=== PATIENT | male | born 1935 | race Caucasian/White ===

== ENCOUNTER → 2018-01-07 09:55 | Outpatient (CLI) | payer MEDICARE, OTHER, SELFPAY ==
[2018-01-07 10:37] LABS: Basophils # 0.1 K/mm3 (0-0.2); Eosinophils # 0.3 K/mm3 (0.0-0.4); Eosinophils % 5.4 % (0.1-12.0); Hematocrit 39.5 % (42.0-52.0); Hemoglobin 12.8 g/dL (14.1-18.0); Lymphocytes # 1.8 K/mm3 (0.7-4.5); Mean Corpuscular HGB Conc 32.3 g/dL (31.8-35.4); Mean Corpuscular Hemoglobin 28.7 pg (27.0-31.2); Mean Corpuscular Volume 88.8 fl (80-94); Mean Platelet Volume 8.2 fl (7.4-10.4); Monocytes # 0.5 K/mm3 (0.1-1.0); Monocytes % 7.4 % (1.7-9.3); Neutrophils # 3.7 K/mm3 (1.8-7.8); Neutrophils % 58.3 % (37.0-80.0); Platelet Count 187 K/mm3 (142-424); Red Blood Count 4.45 M/mm3 (4.60-6.20); Red Cell Distribution Width 14.3 % (11.5-17.5); White Blood Count 6.3 K/mm3 (4.8-10.8)
[2018-01-07 11:18] LABS: Alanine Aminotransferase 19 U/L (12-78); Albumin Level 3.7 gm/dL (3.4-5.0); Albumin/Globulin Ratio 0.9 (1.1-1.8); Alkaline Phosphatase 106 U/L (46-116); Anion Gap 13.2 mEq/L (5-15); Aspartate Amino Transferase 17 U/L (15-37); Bilirubin,Total 0.5 mg/dL (0.2-1.0); Blood Urea Nitrogen 25 mg/dL (7-18); Calcium 9.4 mg/dL (8.5-10.1); Carbon Dioxide 26 mmol/L (21.0-32.0); Chloride 107 mmol/L (98-107); Cholesterol 146 mg/dL (140-200); Creatinine,Serum 1.33 mg/dL (0.70-1.30); Estimated Glomerular Filt Rate 52 ml/min (>60); GFR (African American) 63 ML/MIN (>60); Globulin 4.2 gm/dl (1.3-3.2); Glucose 109 mg/dL (74-106); HDL Cholesterol 29 mg/dL (27-67); LDL Cholesterol 98 mg/dL (0-130); Potassium 4.2 mmoL/L (3.5-5.1); Sodium 142 mmol/L (136-145); Thyroid Stimulating Hormone 1.11 uIU/ml (0.358-3.740); Total Protein,Serum 7.9 gm/dL (6.4-8.2); Triglycerides 95 mg/dL (30-200); VLDL Cholesterol 19 mg/dL (0-40)
[2018-01-07 12:58] LABS: Hemoglobin A1C 8.6 % (0.0-7.0)
[2018-01-08 10:20] LABS: Microalbumin, Urine 67.5 ug/mL (Not Estab.); Vitamin B12 1853 pg/mL (232-1245)
== END ==
PROVIDERS: Visit Provider Nurse Practitioner Family
DX: N18.3 Chronic kidney disease, stage 3 (moderate) (principal); E11.8 Type 2 diabetes mellitus with unspecified complications; E03.9 Hypothyroidism, unspecified; E53.8 Deficiency of other specified B group vitamins
CPT/HCPCS: 36415; 80053; 80061; 82043; 82607; 83036; 84443; 85025

== ENCOUNTER → 2018-06-18 09:30 | Outpatient (CLI) | payer MEDICARE, SELFPAY ==
[2018-06-18 09:59] LABS: Basophils % 0.7 % (0.1-2.0); Eosinophils # 0.1 K/mm3 (0.0-0.4); Eosinophils % 2.6 % (0.1-12.0); Hematocrit 38.2 % (42.0-52.0); Hemoglobin 11.9 g/dL (14.1-18.0); Lymphocytes # 1.4 K/mm3 (0.7-4.5); Lymphocytes % 25.7 K/mm3 (10-50); Mean Corpuscular HGB Conc 31.1 g/dL (31.8-35.4); Mean Platelet Volume 8.4 fl (7.4-10.4); Monocytes # 0.4 K/mm3 (0.1-1.0); Monocytes % 7.1 % (1.7-9.3); Neutrophils # 3.5 K/mm3 (1.8-7.8); Neutrophils % 63.9 % (37.0-80.0); Platelet Count 161 K/mm3 (142-424); Red Blood Count 4.25 M/mm3 (4.60-6.20); Red Cell Distribution Width 14.7 % (11.5-17.5); White Blood Count 5.4 K/mm3 (4.8-10.8)
[2018-06-18 10:59] LABS: Hemoglobin A1C 7.5 % (0.0-7.0)
[2018-06-18 11:22] LABS: Alanine Aminotransferase 19 U/L (12-78); Albumin Level 3.3 gm/dL (3.4-5.0); Albumin/Globulin Ratio 0.8 (1.1-1.8); Alkaline Phosphatase 88 U/L (46-116); Anion Gap 12.9 mEq/L (5-15); Aspartate Amino Transferase 15 U/L (15-37); Bilirubin,Total 0.5 mg/dL (0.2-1.0); Blood Urea Nitrogen 35 mg/dL (7-18); Calcium 8.6 mg/dL (8.5-10.1); Carbon Dioxide 24 mmol/L (21.0-32.0); Chloride 108 mmol/L (98-107); Chol/HDL Ratio 4.8 (1-3.5); Cholesterol 129 mg/dL (140-200); Estimated Glomerular Filt Rate 45 ml/min (>60); GFR (African American) 54 ML/MIN (>60); Globulin 3.9 gm/dl (1.3-3.2); Glucose 102 mg/dL (74-106); HDL Cholesterol 27 mg/dL (27-67); LDL Cholesterol 84 mg/dL (0-130); Potassium 4.9 mmoL/L (3.5-5.1); Sodium 140 mmol/L (136-145); Thyroid Stimulating Hormone 0.55 uIU/ml (0.358-3.740); Total Protein,Serum 7.2 gm/dL (6.4-8.2); Triglycerides 89 mg/dL (30-200); VLDL Cholesterol 18 mg/dL (0-40)
[2018-06-21 06:15] LABS: Vitamin B12 1101 pg/mL (232-1245)
[2018-06-21 15:38] LABS: Ferritin 20 ng/mL (8-388)
[2018-06-23 08:25] LABS: Iron 82 ug/dL (38-169); UIBC 255 ug/dL (111-343)
[2018-06-23 13:10] LABS: Iron Saturation 24 % (15-55)
== END ==
PROVIDERS: PCP Nurse Practitioner Family; Visit Provider Nurse Practitioner Family
DX: E11.22 Type 2 diabetes mellitus with diabetic chronic kidney disease (principal); D64.9 Anemia, unspecified; E78.2 Mixed hyperlipidemia; E03.9 Hypothyroidism, unspecified; E53.8 Deficiency of other specified B group vitamins; D50.8 Other iron deficiency anemias
CPT/HCPCS: 36415; 80053; 80061; 82043; 82570; 82607; 82728; 82746; 83036; 83540; 83550; 84443; 85025

== ENCOUNTER → 2018-09-06 11:56 | Outpatient (CLI) | payer MEDICARE, SELFPAY ==
[2018-09-06 12:24] LABS: Basophils # 0.1 K/mm3 (0-0.2); Basophils % 1.1 % (0.1-2.0); Eosinophils # 0.1 K/mm3 (0.0-0.4); Eosinophils % 1.4 % (0.1-12.0); Hematocrit 39.5 % (42.0-52.0); Hemoglobin 12.1 g/dL (14.1-18.0); Lymphocytes # 1.3 K/mm3 (0.7-4.5); Lymphocytes % 19.7 % (10-50); Mean Corpuscular HGB Conc 30.6 g/dL (31.8-35.4); Mean Corpuscular Hemoglobin 27.4 pg (27.0-31.2); Mean Corpuscular Volume 89.8 fl (80-94); Mean Platelet Volume 8.2 fl (7.4-10.4); Monocytes # 0.4 K/mm3 (0.1-1.0); Monocytes % 6.6 % (1.7-9.3); Neutrophils # 4.8 K/mm3 (1.8-7.8); Neutrophils % 71.2 % (37.0-80.0); Platelet Count 230 K/mm3 (142-424); White Blood Count 6.7 K/mm3 (4.8-10.8)
--- NOTE | 2018-09-06 12:55 | CT_ITS ---
CT angio head, CT angio neck Ordering Physician: Phoenix Dunn MD Patient Age: 82 years: Male HISTORY: ITS.REASON: VISION CHANGES . Double vision. Dizzy. TECHNIQUE: Bolus administration 100 cc [id number] . Thin section: Helical CT/ CTA acquisition scanning performed at neck as well as head.. Axial as well as thickened sagittal and coronal reconstructions performed on independent workstation..-CTA processing All CT scans at this facility used one or more dose reduction techniques , viz: automatic exposure control, ma/Kv adjustment per patient's size, (including targeted exam where dose matched to the indication; i.e. head); or iterative reconstruction technique COMPARISON :. Previous CTA./Neck 09/11/2015 FINDINGS - --- CTA NECK---- Right carotid bifurcation Marked improvement since Sep 2015 CTA. There is been a interval carotid endarterectomy, with now a generous caliber widely patent right carotid bifurcation & right internal carotid artery., Smooth appearance & Free of plaque Left carotid bifurcation.: Dense calcified plaque at the posterior aspect of the left carotid bifurcation is again evident and yields moderate nonflow-limiting stenosis.Up to 40% stenosis. Both common carotid arteries appear satisfactory down to the level of aortic arch. Only minimal calcified plaque at the origin of the Right CCA from innominate artery-yields . Minimal 10% narrowing at the origin of the innominate artery itself from the aorta. Minimal and 10-15% plaque at narrowing origin of the left CCA from aorta. Mild atheromatous plaque throughout the aortic arch. --- CTA HEAD------ . Carotid siphon satisfactory bilaterally..Patent A1 segment bilaterally with the left slightly larger than right... Satisfactory anterior cerebral arteries. The ICA branches appear satisfactory and Branches of the MCA appear satisfactory. No aneurysm at little traverse of Sapp region The basilar artery generous caliber throughout and fills mainly from a very dominant right vertebral artery. Only is extremely small tiny left vertebral artery evident.. This generous caliber Basilar Artery supplies the Posterior Left Cerebral artery. The Right Posterior Cerebral Artery is supplied mainly by a right posterior communicating artery.. On this study there seems seems to be good perfusion of both posterior cerebral arteries. The circulation at the posterior fossa appears adequate through the combination of cerebellar arteries. The left posterior cerebral artery appears slightly more generous caliber than the right but we see no no high-grade stenosis of the vessels leading to occipital lobes but overall satisfactory enhancement pattern here occipital lobes. Grossly symmetric.Otherwise -- The orbits appear symmetric. Globes symmetric on CT survey.. Satisfactory appearance to the ophthalmic artery at its origin from the carotid siphon. Normal CT appearance Optic nerve. No retrobulbar lesions.. Globes unremarkable by CT. .. Although today's thickened Coronal views orbit but not optimal for evaluating this area we see no good evidence for thyroid ophthalmoplegia, . No obvious proptosis. The inferior and medial rectus muscles appear normal volume. On also note the thyroid itself is appears abnormally small at the neck.-(I specifically note these features since thyroid ophthalmoplegia can be a cause double vision.) I would however note there is asymmetry of the sella and pituitary. 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 This I suspect this pituitary adenoma measures up to 10 mm diameter x 11-mm height... This feature has become become more evident today thin sections and previous studies Warrants correlation wit
--- NOTE | 2018-09-06 12:57 | XR_ITS ---
XR wrist LT min 3V Ordering Physician: Phoenix Dunn MD Patient Age: 82 years: Male HISTORY: ITS.REASON: ACUTE LT WRIST PAIN TECHNIQUE: 3 views of the left wrist COMPARISON :None FINDINGS Arthritic changes are seen throughout the wrist.-Most evident towards radial aspect wrist There is narrowing, sclerosis, hypertrophy with subchondral cystic changes most pronounced at first carpal-metacarpal joint,. Reflecting the most of pronounced degenerative arthritic changes at this level. Also notable arthritic changes with narrowing less pronounced hypertrophy and subchondral cystic features seen at the distal navicular articulation with both the trapezium and trapezoid. . The patient also has some narrowing at the capitate-navicular articulation with a generous subchondral cystic feature at proximal capitate measuring nearly 9 mm and just beneath this narrowed portion of the joint. There is some roughening at the posterior aspect of the triquetrum more likely reflecting degenerative changes although could reflect old fracture. Radiocarpal joint with is fairly well maintained with only scant narrowing & question minor sclerosis The fingers are included on this wrist study and demonstrate degenerative changes as well. Narrowing with subchondral cystic changes at the second MCP fifth & first MCP joint of thumb, reflect arthritic changes here. Narrowing and hypertrophic changes at IP joint of thumb. Narrowing at the visualized DIP joint of fingers 2, 3, 4, 5 with trace hypertrophy at these regions. Bones fairly well mineralized. No acute fracture. Pronator fat plane anterior to wrist satisfactory. IMPRESSION Prominent degenerative arthritic changes at wrist and hand. Degenerative arthritis with hypertrophic features most evident at first carpal-metacarpal joint. Significant arthritis is also seen at the articulations of the distal navicular,, as well as other regions as described above.. Degenerative Arthritic changes are also seen at the at the MCP joints involving MCP joint 1, 2, 5 Degenerative arthritic features also involving the PIP joints fingers and IP joint of the thumb
[2018-09-06 13:07] LABS: Erythrocyte Sedimentation Rate 57 mm/hr (0-20)
[2018-09-06 13:09] LABS: Alanine Aminotransferase 16 U/L (12-78); Albumin Level 3.3 gm/dL (3.4-5.0); Albumin/Globulin Ratio 0.8 (1.1-1.8); Alkaline Phosphatase 87 U/L (46-116); Anion Gap 14.3 mEq/L (5-15); Aspartate Amino Transferase 12 U/L (15-37); Bilirubin,Total 0.5 mg/dL (0.2-1.0); Blood Urea Nitrogen 20 mg/dL (7-18); Calcium 8.9 mg/dL (8.5-10.1); Carbon Dioxide 26 mmol/L (21.0-32.0); Chloride 105 mmol/L (98-107); Creatinine,Serum 1.24 mg/dL (0.70-1.30); Estimated Glomerular Filt Rate 56 ml/min (>60); GFR (African American) 68 ML/MIN (>60); Globulin 4.2 gm/dl (1.3-3.2); Glucose 145 mg/dL (74-106); Potassium 4.3 mmoL/L (3.5-5.1); Sodium 141 mmol/L (136-145); Total Protein,Serum 7.5 gm/dL (6.4-8.2)
== END ==
PROVIDERS: Visit Provider Internal Medicine Adolescent Medicine
DX: M25.532 Pain in left wrist (principal); H53.9 Unspecified visual disturbance
CPT/HCPCS: 36415; 70496; 70498; 73110; 80053; 85025; 85651; Q9967

== ENCOUNTER → 2018-09-15 13:15 | Outpatient (CLI) | payer MEDICARE, SELFPAY ==
[2018-09-15 14:18] LABS: Erythrocyte Sedimentation Rate 59 mm/hr (0-20)
[2018-09-15 14:24] LABS: Hemoglobin A1C 7.8 % (0.0-7.0)
[2018-09-15 15:10] LABS: C-Reactive Protein 3.4 mg/L (0.0-0.9); Thyroid Stimulating Hormone 0.97 uIU/ml (0.358-3.740); Uric Acid 6.1 mg/dL (2.6-7.2)
[2018-09-16 11:16] LABS: Prolactin 16.1 ng/mL (4.0-15.2); RA Latex Turbid. <10.0 IU/mL (0.0-13.9)
[2018-09-16 15:21] LABS: Anti-Centromere B Antibodies <0.2 AI (0.0-0.9); Anti-Jo-1 <0.2 AI (0.0-0.9); Anti-Smith Antibody <0.2 AI (0.0-0.9); Antichromatin Antibodies <0.2 AI (0.0-0.9); Antiscleroderma-70 Antibodies <0.2 AI (0.0-0.9); RNP Antibodies 0.3 AI (0.0-0.9); Sjogren's Anti-SS-A <0.2 AI (0.0-0.9); Sjogren's Anti-SS-B <0.2 AI (0.0-0.9)
[2018-09-16 17:41] LABS: Anti-DNA (DS) Ab Qn 6 IU/mL (0-9)
[2018-09-17 06:37] LABS: Anti-Cyclic Citrullinated Pept 7 units (0-19)
== END ==
PROVIDERS: Visit Provider Nurse Practitioner Family
DX: E11.22 Type 2 diabetes mellitus with diabetic chronic kidney disease (principal); E03.9 Hypothyroidism, unspecified; E23.7 Disorder of pituitary gland, unspecified; M25.50 Pain in unspecified joint; R70.0 Elevated erythrocyte sedimentation rate
CPT/HCPCS: 36415; 83036; 84146; 84443; 84550; 85651; 86140; 86200; 86225; 86235; 86431

== ENCOUNTER → 2018-12-15 09:35 | Outpatient (CLI) | payer MEDICARE, SELFPAY ==
[2018-12-15 10:24] LABS: Basophils % 0.3 % (0.1-2.0); Eosinophils # 0.1 K/mm3 (0.0-0.4); Eosinophils % 1.3 % (0.1-12.0); Hematocrit 34.7 % (42.0-52.0); Lymphocytes # 1.9 K/mm3 (0.7-4.5); Lymphocytes % 32.6 % (10-50); Mean Corpuscular HGB Conc 31.7 g/dL (31.8-35.4); Mean Corpuscular Hemoglobin 28.6 pg (27.0-31.2); Mean Platelet Volume 7.2 fl (7.4-10.4); Monocytes # 0.3 K/mm3 (0.1-1.0); Monocytes % 5.9 % (1.7-9.3); Neutrophils # 3.5 K/mm3 (1.8-7.8); Platelet Count 184 K/mm3 (142-424); Red Blood Count 3.85 M/mm3 (4.60-6.20); Red Cell Distribution Width 16.8 % (11.5-17.5); White Blood Count 5.7 K/mm3 (4.8-10.8)
[2018-12-15 11:02] LABS: Hemoglobin A1C 7.9 % (0.0-7.0)
[2018-12-15 11:31] LABS: Ferritin 30 ng/mL (8-388)
[2018-12-15 15:59] LABS: Alanine Aminotransferase 32 U/L (12-78); Albumin Level 3.4 gm/dL (3.4-5.0); Alkaline Phosphatase 58 U/L (46-116); Aspartate Amino Transferase 23 U/L (15-37); Bilirubin,Total 0.5 mg/dL (0.2-1.0); Blood Urea Nitrogen 27 mg/dL (7-18); Calcium 8.7 mg/dL (8.5-10.1); Carbon Dioxide 27 mmol/L (21.0-32.0); Chloride 105 mmol/L (98-107); Chol/HDL Ratio 3.8 (1-3.5); Cholesterol 173 mg/dL (140-200); Creatinine,Serum 1.24 mg/dL (0.70-1.30); Estimated Glomerular Filt Rate 56 ml/min (>60); GFR (African American) 68 ML/MIN (>60); Globulin 3.3 gm/dl (1.3-3.2); Glucose 59 mg/dL (74-106); HDL Cholesterol 45 mg/dL (27-67); LDL Cholesterol 112 mg/dL (0-130); Sodium 141 mmol/L (136-145); Thyroid Stimulating Hormone 2.89 uIU/ml (0.358-3.740); Total Protein,Serum 6.7 gm/dL (6.4-8.2); Triglycerides 79 mg/dL (30-200); VLDL Cholesterol 16 mg/dL (0-40)
[2018-12-16 08:30] LABS: Iron 40 ug/dL (38-169); UIBC 313 ug/dL (111-343)
[2018-12-16 10:02] LABS: Iron Saturation 11 % (15-55)
[2018-12-16 10:02] LABS: Vitamin B12 970 pg/mL (232-1245)
== END ==
PROVIDERS: PCP Nurse Practitioner Family; Visit Provider Nurse Practitioner Family
DX: D50.8 Other iron deficiency anemias (principal); Z79.899 Other long term (current) drug therapy
CPT/HCPCS: 36415; 80053; 80061; 82607; 82728; 82746; 83036; 83540; 83550; 84443; 85025

== ENCOUNTER → 2019-03-18 09:56 | Outpatient (CLI) | payer MEDICARE, SELFPAY ==
[2019-03-18 10:15] LABS: Basophils % 0.5 % (0.1-2.0); Eosinophils # 0.1 K/mm3 (0.0-0.4); Eosinophils % 0.8 % (0.1-12.0); Hemoglobin 11.1 g/dL (14.1-18.0); Lymphocytes # 2.1 K/mm3 (0.7-4.5); Lymphocytes % 30.2 % (10-50); Mean Corpuscular HGB Conc 30.1 g/dL (31.8-35.4); Mean Corpuscular Hemoglobin 26.6 pg (27.0-31.2); Mean Corpuscular Volume 88.4 fl (80-94); Mean Platelet Volume 8.2 fl (7.4-10.4); Monocytes # 0.4 K/mm3 (0.1-1.0); Monocytes % 6.5 % (1.7-9.3); Neutrophils # 4.2 K/mm3 (1.8-7.8); Platelet Count 193 K/mm3 (142-424); Red Blood Count 4.19 M/mm3 (4.60-6.20); Red Cell Distribution Width 15.3 % (11.5-17.5); White Blood Count 6.8 K/mm3 (4.8-10.8)
[2019-03-18 10:51] LABS: Erythrocyte Sedimentation Rate 18 mm/hr (0-20)
[2019-03-18 12:14] LABS: Alanine Aminotransferase 21 U/L (12-78); Albumin Level 3.3 gm/dL (3.4-5.0); Alkaline Phosphatase 70 U/L (46-116); Anion Gap 10.3 mEq/L (5-15); Aspartate Amino Transferase 11 U/L (15-37); Bilirubin,Total 0.6 mg/dL (0.2-1.0); Blood Urea Nitrogen 31 mg/dL (7-18); Calcium 9.4 mg/dL (8.5-10.1); Carbon Dioxide 28 mmol/L (21.0-32.0); Chloride 107 mmol/L (98-107); Chol/HDL Ratio 5.2 (1-3.5); Cholesterol 167 mg/dL (140-200); Creatinine,Serum 1.42 mg/dL (0.70-1.30); Estimated Glomerular Filt Rate 48 ml/min (>60); GFR (African American) 58 ML/MIN (>60); Globulin 3.4 gm/dl (1.3-3.2); Glucose 64 mg/dL (74-106); HDL Cholesterol 32 mg/dL (27-67); LDL Cholesterol 118 mg/dL (0-130); Potassium 4.3 mmoL/L (3.5-5.1); Sodium 141 mmol/L (136-145); Thyroid Stimulating Hormone 1.59 uIU/ml (0.358-3.740); Total Protein,Serum 6.7 gm/dL (6.4-8.2); Triglycerides 87 mg/dL (30-200); VLDL Cholesterol 17 mg/dL (0-40)
[2019-03-20 22:51] LABS: Prolactin 19.9 ng/mL (4.0-15.2); Vitamin B12 935 pg/mL (232-1245); Vitamin D 25 Hydroxy 39.8 ng/mL (30.0-100.0)
== END ==
PROVIDERS: Visit Provider Nurse Practitioner Family
DX: D64.9 Anemia, unspecified (principal); E11.22 Type 2 diabetes mellitus with diabetic chronic kidney disease; E78.2 Mixed hyperlipidemia; E53.8 Deficiency of other specified B group vitamins; E03.9 Hypothyroidism, unspecified; M19.90 Unspecified osteoarthritis, unspecified site
CPT/HCPCS: 36415; 80053; 80061; 82607; 82652; 83036; 84146; 84443; 85025; 85651

== ENCOUNTER → 2019-04-19 10:36 | Outpatient (CLI) | payer MEDICARE, SELFPAY ==
[2019-04-19 10:52] LABS: Basophils # 0.1 K/mm3 (0-0.2); Basophils % 0.7 % (0.1-2.0); Eosinophils # 0.1 K/mm3 (0.0-0.4); Eosinophils % 0.8 % (0.1-12.0); Hematocrit 41.5 % (42.0-52.0); Hemoglobin 12.9 g/dL (14.1-18.0); Lymphocytes # 1.8 K/mm3 (0.7-4.5); Lymphocytes % 23.7 % (10-50); Mean Corpuscular Hemoglobin 28.2 pg (27.0-31.2); Mean Corpuscular Volume 90.8 fl (80-94); Mean Platelet Volume 7.3 fl (7.4-10.4); Monocytes # 0.4 K/mm3 (0.1-1.0); Monocytes % 5.4 % (1.7-9.3); Neutrophils # 5.2 K/mm3 (1.8-7.8); Neutrophils % 69.4 % (37.0-80.0); Platelet Count 201 K/mm3 (142-424); Red Blood Count 4.57 M/mm3 (4.60-6.20); Red Cell Distribution Width 15.8 % (11.5-17.5); White Blood Count 7.5 K/mm3 (4.8-10.8)
[2019-04-19 14:08] LABS: Alanine Aminotransferase 25 U/L (12-78); Albumin Level 3.5 gm/dL (3.4-5.0); Albumin/Globulin Ratio 1.1 (1.1-1.8); Alkaline Phosphatase 77 U/L (46-116); Anion Gap 10.9 mEq/L (5-15); Aspartate Amino Transferase 7 U/L (15-37); Bilirubin,Total 0.5 mg/dL (0.2-1.0); Blood Urea Nitrogen 25 mg/dL (7-18); C-Reactive Protein 0.2 mg/dL (0.0-0.9); Calcium 9.4 mg/dL (8.5-10.1); Carbon Dioxide 28 mmol/L (21.0-32.0); Chloride 105 mmol/L (98-107); Creatinine,Serum 1.29 mg/dL (0.70-1.30); Estimated Glomerular Filt Rate 53 ml/min (>60); GFR (African American) 65 ML/MIN (>60); Globulin 3.3 gm/dl (1.3-3.2); Glucose 116 mg/dL (74-106); Potassium 4.9 mmoL/L (3.5-5.1); Sodium 139 mmol/L (136-145); Total Protein,Serum 6.8 gm/dL (6.4-8.2)
[2019-04-19 14:59] LABS: Erythrocyte Sedimentation Rate 11 mm/hr (0-20)
== END ==
PROVIDERS: Visit Provider Internal Medicine
DX: M35.3 Polymyalgia rheumatica (principal); Z79.52 Long term (current) use of systemic steroids
CPT/HCPCS: 36415; 80053; 85025; 85651; 86140

== ENCOUNTER → 2019-06-17 09:43 | Outpatient (CLI) | payer MEDICARE, SELFPAY ==
[2019-06-17 10:14] LABS: Basophils # 0.1 K/mm3 (0-0.2); Basophils % 0.8 % (0.1-2.0); Eosinophils # 0.1 K/mm3 (0.0-0.4); Eosinophils % 0.9 % (0.1-12.0); Hematocrit 45.4 % (42.0-52.0); Hemoglobin 13.7 g/dL (14.1-18.0); Lymphocytes # 3.2 K/mm3 (0.7-4.5); Lymphocytes % 35.7 % (10-50); Mean Corpuscular HGB Conc 30.1 g/dL (31.8-35.4); Mean Corpuscular Hemoglobin 28.2 pg (27.0-31.2); Mean Corpuscular Volume 93.5 fl (80-94); Mean Platelet Volume 7.5 fl (7.4-10.4); Monocytes # 0.7 K/mm3 (0.1-1.0); Monocytes % 8.2 % (1.7-9.3); Neutrophils # 4.9 K/mm3 (1.8-7.8); Neutrophils % 54.4 % (37.0-80.0); Platelet Count 251 K/mm3 (142-424); Red Blood Count 4.85 M/mm3 (4.60-6.20); Red Cell Distribution Width 16.2 % (11.5-17.5); White Blood Count 9.1 K/mm3 (4.8-10.8)
[2019-06-17 11:07] LABS: Alanine Aminotransferase 20 U/L (12-78); Albumin Level 3.6 gm/dL (3.4-5.0); Albumin/Globulin Ratio 1.1 (1.1-1.8); Alkaline Phosphatase 75 U/L (46-116); Anion Gap 11.9 mEq/L (5-15); Aspartate Amino Transferase 12 U/L (15-37); Bilirubin,Total 0.5 mg/dL (0.2-1.0); Blood Urea Nitrogen 29 mg/dL (7-18); Carbon Dioxide 29 mmol/L (21.0-32.0); Chloride 105 mmol/L (98-107); Chol/HDL Ratio 4.5 (1-3.5); Cholesterol 166 mg/dL (140-200); Creatinine,Serum 1.24 mg/dL (0.70-1.30); Estimated Glomerular Filt Rate 56 ml/min (>60); GFR (African American) 68 ML/MIN (>60); Globulin 3.4 gm/dl (1.3-3.2); Glucose 70 mg/dL (74-106); HDL Cholesterol 37 mg/dL (27-67); LDL Cholesterol 114 mg/dL (0-130); Potassium 3.9 mmoL/L (3.5-5.1); Sodium 142 mmol/L (136-145); Thyroid Stimulating Hormone 1.68 uIU/ml (0.358-3.740); Triglycerides 77 mg/dL (30-200); VLDL Cholesterol 15 mg/dL (0-40)
[2019-06-17 11:32] LABS: Hemoglobin A1C 8.2 % (0.0-7.0)
[2019-06-18 18:58] LABS: Vitamin B12 1340 pg/mL (232-1245)
== END ==
PROVIDERS: Visit Provider Nurse Practitioner Family
DX: E11.22 Type 2 diabetes mellitus with diabetic chronic kidney disease (principal); E78.2 Mixed hyperlipidemia; E03.9 Hypothyroidism, unspecified; E53.8 Deficiency of other specified B group vitamins; D64.9 Anemia, unspecified; N18.3 Chronic kidney disease, stage 3 (moderate)
CPT/HCPCS: 36415; 80053; 80061; 82607; 83036; 84443; 85025

== ENCOUNTER → 2019-07-20 10:51 | Outpatient (CLI) | payer MEDICARE, SELFPAY ==
[2019-07-20 12:02] LABS: Basophils % 0.6 % (0.1-2.0); Eosinophils % 0.5 % (0.1-12.0); Hematocrit 44.9 % (42.0-52.0); Hemoglobin 14.1 g/dL (14.1-18.0); Lymphocytes # 1.3 K/mm3 (0.7-4.5); Mean Corpuscular HGB Conc 31.4 g/dL (31.8-35.4); Mean Corpuscular Hemoglobin 30.1 pg (27.0-31.2); Mean Corpuscular Volume 95.8 fl (80-94); Mean Platelet Volume 7.7 fl (7.4-10.4); Monocytes # 0.4 K/mm3 (0.1-1.0); Monocytes % 6.1 % (1.7-9.3); Neutrophils # 5.4 K/mm3 (1.8-7.8); Neutrophils % 74.8 % (37.0-80.0); Platelet Count 192 K/mm3 (142-424); Red Blood Count 4.69 M/mm3 (4.60-6.20); Red Cell Distribution Width 15.4 % (11.5-17.5); White Blood Count 7.3 K/mm3 (4.8-10.8)
[2019-07-20 13:49] LABS: Alanine Aminotransferase 23 U/L (12-78); Albumin Level 3.5 gm/dL (3.4-5.0); Alkaline Phosphatase 75 U/L (46-116); Aspartate Amino Transferase 11 U/L (15-37); Bilirubin,Total 0.7 mg/dL (0.2-1.0); Blood Urea Nitrogen 27 mg/dL (7-18); Carbon Dioxide 28 mmol/L (21.0-32.0); Chloride 104 mmol/L (98-107); Creatine Kinase 67 U/L (39-308); Creatinine,Serum 1.27 mg/dL (0.70-1.30); Estimated Glomerular Filt Rate 54 ml/min (>60); GFR (African American) 66 ML/MIN (>60); Globulin 3.4 gm/dl (1.3-3.2); Glucose 109 mg/dL (74-106); Sodium 141 mmol/L (136-145); Total Protein,Serum 6.9 gm/dL (6.4-8.2)
[2019-07-20 13:56] LABS: C-Reactive Protein < 0.2 mg/dL (0.0-0.9)
[2019-07-20 14:26] LABS: Erythrocyte Sedimentation Rate 10 mm/hr (0-20)
== END ==
PROVIDERS: Visit Provider Internal Medicine
DX: M35.3 Polymyalgia rheumatica (principal); M15.9 Polyosteoarthritis, unspecified; Z79.52 Long term (current) use of systemic steroids
CPT/HCPCS: 36415; 80053; 82550; 85025; 85651; 86140

== ENCOUNTER → 2019-09-21 10:41 | Outpatient (CLI) | payer MEDICARE, SELFPAY ==
[2019-09-21 11:04] LABS: Basophils # 0.1 K/mm3 (0-0.2); Basophils % 0.8 % (0.1-2.0); Eosinophils # 0.1 K/mm3 (0.0-0.4); Eosinophils % 1.6 % (0.1-12.0); Hematocrit 45.1 % (42.0-52.0); Hemoglobin 14.4 g/dL (14.1-18.0); Lymphocytes # 2.3 K/mm3 (0.7-4.5); Lymphocytes % 27.5 % (10-50); Mean Corpuscular HGB Conc 31.8 g/dL (31.8-35.4); Mean Corpuscular Volume 94.2 fl (80-94); Mean Platelet Volume 7.9 fl (7.4-10.4); Monocytes # 0.7 K/mm3 (0.1-1.0); Monocytes % 8.1 % (1.7-9.3); Neutrophils # 5.1 K/mm3 (1.8-7.8); Platelet Count 226 K/mm3 (142-424); Red Blood Count 4.78 M/mm3 (4.60-6.20); Red Cell Distribution Width 13.7 % (11.5-17.5); White Blood Count 8.1 K/mm3 (4.8-10.8)
[2019-09-21 11:26] LABS: C-Reactive Protein < 0.2 mg/dL (0.0-0.9)
[2019-09-21 11:37] LABS: Alanine Aminotransferase 15 U/L (12-78); Albumin Level 3.5 gm/dL (3.4-5.0); Albumin/Globulin Ratio 0.9 (1.1-1.8); Alkaline Phosphatase 76 U/L (46-116); Anion Gap 12.4 mEq/L (5-15); Bilirubin,Total 0.6 mg/dL (0.2-1.0); Blood Urea Nitrogen 24 mg/dL (7-18); Calcium 9.3 mg/dL (8.5-10.1); Carbon Dioxide 27 mmol/L (21.0-32.0); Chloride 104 mmol/L (98-107); Creatinine,Serum 1.27 mg/dL (0.70-1.30); Estimated Glomerular Filt Rate 54 ml/min (>60); GFR (African American) 66 ML/MIN (>60); Globulin 3.7 gm/dl (1.3-3.2); Glucose 72 mg/dL (74-106); Potassium 3.4 mmoL/L (3.5-5.1); Sodium 140 mmol/L (136-145); Thyroid Stimulating Hormone 2.52 uIU/ml (0.358-3.740); Total Protein,Serum 7.2 gm/dL (6.4-8.2)
[2019-09-21 11:59] LABS: Aspartate Amino Transferase 19 U/L (15-37)
[2019-09-21 12:08] LABS: Hemoglobin A1C 8.3 % (0.0-7.0)
[2019-09-21 12:12] LABS: Erythrocyte Sedimentation Rate 12 mm/hr (0-20)
[2019-09-22 15:41] LABS: Vitamin B12 1046 pg/mL (232-1245)
== END ==
PROVIDERS: Visit Provider Nurse Practitioner Family
DX: E11.22 Type 2 diabetes mellitus with diabetic chronic kidney disease (principal); E03.9 Hypothyroidism, unspecified; E53.8 Deficiency of other specified B group vitamins; N18.3 Chronic kidney disease, stage 3 (moderate); M15.9 Polyosteoarthritis, unspecified; M35.3 Polymyalgia rheumatica; Z79.52 Long term (current) use of systemic steroids
CPT/HCPCS: 36415; 80053; 82607; 83036; 84443; 85025; 85651; 86140

== ENCOUNTER → 2019-11-21 10:21 | Outpatient (CLI) | payer MEDICARE, SELFPAY ==
[2019-11-21 11:35] LABS: Basophils # 0.1 K/mm3 (0-0.2); Basophils % 0.8 % (0.1-2.0); Eosinophils # 0.2 K/mm3 (0.0-0.4); Eosinophils % 1.9 % (0.1-12.0); Hematocrit 46.2 % (42.0-52.0); Hemoglobin 14.8 g/dL (14.1-18.0); Lymphocytes # 1.7 K/mm3 (0.7-4.5); Lymphocytes % 21.6 % (10-50); Mean Corpuscular Hemoglobin 30.1 pg (27.0-31.2); Mean Platelet Volume 8.4 fl (7.4-10.4); Monocytes # 0.5 K/mm3 (0.1-1.0); Monocytes % 6.6 % (1.7-9.3); Neutrophils # 5.4 K/mm3 (1.8-7.8); Neutrophils % 69.2 % (37.0-80.0); Platelet Count 178 K/mm3 (142-424); Red Blood Count 4.92 M/mm3 (4.60-6.20); Red Cell Distribution Width 13.9 % (11.5-17.5); White Blood Count 7.9 K/mm3 (4.8-10.8)
[2019-11-21 11:48] LABS: Chloride 105 mmol/L (98-107)
[2019-11-21 11:49] LABS: Sodium 143 mmol/L (136-145)
[2019-11-21 11:51] LABS: Alanine Aminotransferase 14 U/L (12-78); Aspartate Amino Transferase 22 U/L (17-59); Blood Urea Nitrogen 23 mg/dl (9-20); Estimated Glomerular Filt Rate 58 ml/min (>60); GFR (African American) 70 ML/MIN (>60)
[2019-11-21 11:52] LABS: Albumin Level 4.1 g/dl (3.5-5.0); Albumin/Globulin Ratio 1.4 (1.1-1.8); Alkaline Phosphatase 70 U/L (38-126); Bilirubin,Total 0.6 mg/dl (0.2-1.3); Calcium 9.7 mg/dl (8.4-10.2); Carbon Dioxide 28 mmol/L (22.0-30.0); Globulin 2.9 g/dL (1.3-3.2); Glucose 90 mg/dl (74-100)
[2019-11-21 13:03] LABS: Erythrocyte Sedimentation Rate 13 mm/hr (0-20)
[2019-11-21 16:02] LABS: C-Reactive Protein 1.2 mg/L (0-4)
== END ==
PROVIDERS: Visit Provider Internal Medicine
DX: M15.9 Polyosteoarthritis, unspecified (principal); M35.3 Polymyalgia rheumatica; Z79.52 Long term (current) use of systemic steroids
CPT/HCPCS: 36415; 80053; 85025; 85651; 86140

== ENCOUNTER → 2020-01-24 12:28 | Outpatient (CLI) | payer MEDICARE, SELFPAY ==
[2020-01-24 13:01] LABS: Basophils # 0.1 K/mm3 (0-0.2); Basophils % 1.1 % (0.1-2.0); Eosinophils # 0.1 K/mm3 (0.0-0.4); Eosinophils % 1.8 % (0.1-12.0); Hematocrit 43.2 % (42.0-52.0); Lymphocytes # 1.9 K/mm3 (0.7-4.5); Lymphocytes % 26.6 % (10-50); Mean Corpuscular HGB Conc 32.5 g/dL (31.8-35.4); Mean Corpuscular Hemoglobin 30.8 pg (27.0-31.2); Mean Corpuscular Volume 94.8 fl (80-94); Monocytes # 0.6 K/mm3 (0.1-1.0); Monocytes % 7.8 % (1.7-9.3); Neutrophils # 4.4 K/mm3 (1.8-7.8); Neutrophils % 62.6 % (37.0-80.0); Platelet Count 259 K/mm3 (142-424); Red Blood Count 4.55 M/mm3 (4.60-6.20); Red Cell Distribution Width 13.7 % (11.5-17.5)
[2020-01-24 13:32] LABS: Hemoglobin A1C 6.9 % (4.0-6.0)
[2020-01-24 14:09] LABS: Alanine Aminotransferase 13 U/L (12-78); Albumin Level 4.4 g/dl (3.5-5.0); Albumin/Globulin Ratio 1.3 (1.1-1.8); Alkaline Phosphatase 92 U/L (38-126); Anion Gap 11.2 mEq/L (5-15); Aspartate Amino Transferase 21 U/L (17-59); Bilirubin,Total 0.6 mg/dl (0.2-1.3); Blood Urea Nitrogen 25 mg/dl (9-20); Calcium 10.3 mg/dl (8.4-10.2); Carbon Dioxide 29 mmol/L (22.0-30.0); Chloride 103 mmol/L (98-107); Cholesterol 149 mg/dl (140-200); Estimated Glomerular Filt Rate 58 ml/min (>60); GFR (African American) 70 ML/MIN (>60); Globulin 3.3 g/dL (1.3-3.2); Glucose 91 mg/dl (74-100); HDL Cholesterol 30 mg/dl (40-60); Potassium 4.2 mmoL/L (3.5-5.1); Sodium 139 mmol/L (136-145); Total Protein,Serum 7.7 g/dl (6.3-8.2); Triglycerides 125 mg/dl (30-150); VLDL Cholesterol 25 mg/dL (0-40)
[2020-01-24 14:20] LABS: Direct LDL Cholesterol 107.81 mg/dL (100-129)
[2020-01-24 14:38] LABS: Thyroid Stimulating Hormone 1.72 uIU/mL (0.465-4.68)
[2020-01-25 09:26] LABS: Creatinine, Urine 175.2 mg/dL (Not Estab.); Microalbumin, Urine 129.8 ug/mL (Not Estab.)
[2020-01-26 16:26] LABS: Prostate Specific Ag Screen 9.6 ng/ml (0.0-4.0)
== END ==
PROVIDERS: Visit Provider Nurse Practitioner Family
DX: E11.22 Type 2 diabetes mellitus with diabetic chronic kidney disease (principal); N18.3 Chronic kidney disease, stage 3 (moderate); E78.2 Mixed hyperlipidemia; E03.9 Hypothyroidism, unspecified; R35.1 Nocturia; Z12.5 Encounter for screening for malignant neoplasm of prostate
CPT/HCPCS: 36415; 80053; 80061; 82043; 82570; 83036; 84443; 85025; G0103

== ENCOUNTER → 2020-04-04 09:45 | Outpatient (CLI) | payer MEDICARE, SELFPAY ==
[2020-04-04 10:28] LABS: Basophils # 0.1 K/mm3 (0-0.2); Basophils % 0.8 % (0.1-2.0); Eosinophils # 0.2 K/mm3 (0.0-0.4); Eosinophils % 1.7 % (0.1-12.0); Hematocrit 45.6 % (42.0-52.0); Hemoglobin 14.9 g/dL (14.1-18.0); Lymphocytes # 1.7 K/mm3 (0.7-4.5); Lymphocytes % 19.4 % (10-50); Mean Corpuscular HGB Conc 32.6 g/dL (31.8-35.4); Mean Corpuscular Hemoglobin 31.9 pg (27.0-31.2); Mean Corpuscular Volume 97.7 fl (80-94); Mean Platelet Volume 7.7 fl (7.4-10.4); Monocytes # 0.4 K/mm3 (0.1-1.0); Monocytes % 4.8 % (1.7-9.3); Neutrophils # 6.3 K/mm3 (1.8-7.8); Neutrophils % 73.3 % (37.0-80.0); Platelet Count 163 K/mm3 (142-424); Red Blood Count 4.67 M/mm3 (4.60-6.20); White Blood Count 8.5 K/mm3 (4.8-10.8)
[2020-04-04 10:45] LABS: Chloride 104 mmol/L (98-107)
[2020-04-04 10:46] LABS: Potassium 4.9 mmoL/L (3.5-5.1); Sodium 142 mmol/L (136-145)
[2020-04-04 10:47] LABS: Creatine Kinase 26 U/L (55-170)
[2020-04-04 10:48] LABS: Alanine Aminotransferase 16 U/L (12-78); Alkaline Phosphatase 79 U/L (38-126); Anion Gap 13.9 mEq/L (5-15); Aspartate Amino Transferase 21 U/L (17-59); Bilirubin,Total 0.9 mg/dl (0.2-1.3); Blood Urea Nitrogen 32 mg/dl (9-20); Carbon Dioxide 29 mmol/L (22.0-30.0); Estimated Glomerular Filt Rate 49 ml/min (>60); GFR (African American) 59 ML/MIN (>60)
[2020-04-04 10:49] LABS: Albumin/Globulin Ratio 1.3 (1.1-1.8); Calcium 9.7 mg/dl (8.4-10.2); Cholesterol 167 mg/dl (140-200); Glucose 80 mg/dl (74-100); Triglycerides 173 mg/dl (30-150); VLDL Cholesterol 35 mg/dL (0-40)
[2020-04-04 10:54] LABS: C-Reactive Protein 1.7 mg/L (0-4)
[2020-04-04 11:00] LABS: Direct LDL Cholesterol 104.52 mg/dL (100-129)
[2020-04-04 11:19] LABS: Thyroid Stimulating Hormone 2.46 uIU/mL (0.465-4.68)
[2020-04-04 12:10] LABS: Chol/HDL Ratio 5.2 (1-3.5); HDL Cholesterol 32 mg/dl (40-60)
[2020-04-04 12:26] LABS: Erythrocyte Sedimentation Rate 10 mm/hr (0-20)
[2020-04-04 13:58] LABS: Hemoglobin A1C 7.8 % (4.0-6.0)
[2020-04-05 10:12] LABS: Vitamin B12 1228 pg/mL (232-1245)
== END ==
PROVIDERS: PCP Internal Medicine; Visit Provider Nurse Practitioner Family
DX: E11.22 Type 2 diabetes mellitus with diabetic chronic kidney disease (principal); E78.2 Mixed hyperlipidemia; E03.9 Hypothyroidism, unspecified; E53.8 Deficiency of other specified B group vitamins; M35.3 Polymyalgia rheumatica; M15.9 Polyosteoarthritis, unspecified; Z79.52 Long term (current) use of systemic steroids
CPT/HCPCS: 36415; 80053; 80061; 82550; 82607; 83036; 84443; 85025; 85651; 86140

== ENCOUNTER → 2020-08-06 11:17 | Outpatient (CLI) | payer MEDICARE, SELFPAY ==
[2020-08-06 11:48] LABS: Basophils # 0.1 K/mm3 (0-0.2); Eosinophils # 0.1 K/mm3 (0.0-0.4); Eosinophils % 0.5 % (0.1-12.0); Hematocrit 46.9 % (42.0-52.0); Hemoglobin 15.5 g/dL (14.1-18.0); Lymphocytes # 1.3 K/mm3 (0.7-4.5); Lymphocytes % 15.7 % (10-50); Mean Corpuscular Hemoglobin 31.9 pg (27.0-31.2); Mean Corpuscular Volume 96.7 fl (80-94); Mean Platelet Volume 8.1 fl (7.4-10.4); Monocytes # 0.4 K/mm3 (0.1-1.0); Monocytes % 5.1 % (1.7-9.3); Neutrophils # 6.6 K/mm3 (1.8-7.8); Neutrophils % 77.6 % (37.0-80.0); Platelet Count 201 K/mm3 (142-424); Red Blood Count 4.85 M/mm3 (4.60-6.20); White Blood Count 8.5 K/mm3 (4.8-10.8)
[2020-08-06 12:26] LABS: Chloride 103 mmol/L (98-107); Sodium 139 mmol/L (136-145)
[2020-08-06 12:27] LABS: Potassium 4.6 mmoL/L (3.5-5.1)
[2020-08-06 12:29] LABS: Alanine Aminotransferase 17 U/L (12-78); Albumin Level 4.3 g/dl (3.5-5.0); Albumin/Globulin Ratio 1.4 (1.1-1.8); Alkaline Phosphatase 92 U/L (38-126); Anion Gap 11.6 mEq/L (5-15); Aspartate Amino Transferase 24 U/L (17-59); Bilirubin,Total 0.8 mg/dl (0.2-1.3); Blood Urea Nitrogen 28 mg/dl (9-20); Calcium 9.8 mg/dl (8.4-10.2); Carbon Dioxide 29 mmol/L (22.0-30.0); Creatine Kinase 25 U/L (55-170); Estimated Glomerular Filt Rate 58 ml/min (>60); GFR (African American) 70 ML/MIN (>60); Glucose 149 mg/dl (74-100); Total Protein,Serum 7.3 g/dl (6.3-8.2)
[2020-08-06 14:24] LABS: Erythrocyte Sedimentation Rate 8 mm/hr (0-20)
[2020-08-07 12:34] LABS: PSA, Free 2.85 ng/mL; Prostate Specific Ag 13.4 ng/mL (0.0-4.0)
== END ==
PROVIDERS: PCP Nurse Practitioner Women's Health; Visit Provider Urology
DX: R97.20 Elevated prostate specific antigen [PSA] (principal); M35.3 Polymyalgia rheumatica; Z79.52 Long term (current) use of systemic steroids
CPT/HCPCS: 36415; 80053; 82550; 84153; 84154; 85025; 85651; 86140

== ENCOUNTER → 2020-08-25 09:01 | Outpatient (CLI) | payer MEDICARE, SELFPAY ==
[2020-08-25 09:24] LABS: Basophils # 0.1 K/mm3 (0-0.2); Basophils % 0.8 % (0.1-2.0); Eosinophils # 0.1 K/mm3 (0.0-0.4); Eosinophils % 1.6 % (0.1-12.0); Hematocrit 46.8 % (42.0-52.0); Hemoglobin 14.3 g/dL (14.1-18.0); Lymphocytes % 23.6 % (10-50); Mean Corpuscular HGB Conc 30.7 g/dL (31.8-35.4); Mean Corpuscular Hemoglobin 30.4 pg (27.0-31.2); Mean Corpuscular Volume 99.1 fl (80-94); Mean Platelet Volume 7.6 fl (7.4-10.4); Monocytes # 0.6 K/mm3 (0.1-1.0); Monocytes % 6.5 % (1.7-9.3); Neutrophils # 5.7 K/mm3 (1.8-7.8); Neutrophils % 67.5 % (37.0-80.0); Platelet Count 188 K/mm3 (142-424); Red Blood Count 4.72 M/mm3 (4.60-6.20); Red Cell Distribution Width 13.4 % (11.5-17.5); White Blood Count 8.4 K/mm3 (4.8-10.8)
[2020-08-25 10:30] LABS: Anion Gap 12.2 mEq/L (5-15); Blood Urea Nitrogen 27 mg/dl (9-20); Carbon Dioxide 30 mmol/L (22.0-30.0); Chloride 103 mmol/L (98-107); Estimated Glomerular Filt Rate 53 ml/min (>60); GFR (African American) 64 ML/MIN (>60); Glucose 62 mg/dl (74-100); Potassium 4.2 mmoL/L (3.5-5.1); Sodium 141 mmol/L (136-145)
[2020-08-25 11:24] LABS: Coronavirus 19 IgG Antibody Negative (Negative); Coronavirus 19 IgM Antibody Negative (Negative)
[2020-08-26 13:43] LABS: PSA, Free 2.93 ng/mL; Prostate Specific Ag 14.2 ng/mL (0.0-4.0)
== END ==
PROVIDERS: Visit Provider Urology
DX: R97.20 Elevated prostate specific antigen [PSA] (principal); N40.1 Benign prostatic hyperplasia with lower urinary tract symptoms; N13.8 Other obstructive and reflux uropathy; Z01.818 Encounter for other preprocedural examination; Z03.818 Encounter for observation for suspected exposure to other biological agents ruled out
CPT/HCPCS: 36415; 80048; 84153; 84154; 85025; 86328

== ENCOUNTER 2020-08-27 07:39 | Day surgery (SDC) | payer MEDICARE, SELFPAY ==
[2020-08-22 10:42] VITALS: BMI 30.7
[2020-08-27 08:01] VITALS: BP 188/96; PULSE 68; RESP 18; TEMP 36.5; O2SAT 95
[2020-08-27 08:50] LABS: POC Glucose,Bedside 164 (70-110)
--- NOTE | 2020-08-27 10:11 | HMH.ANESCL ---
[facility] Anesthesia Checklist - Patient Identification Patient Identification: Arm Band, Verbal (Name & ) - Structural Data Admitted From: Home Planned Operative Procedure/s: Prostate Biopsy Consent for Planned Operative Procedure(s) Verified: Yes Verified Documents: Surgical Consent, History and Physical - NPO Status Verified Time NPO: 00:00 - Chart Verification Results Verified: CBC, BMP - Additional verifications Fingerstick Blood Glucose: 164 Anesthesia Reactions: No Hx Blood Transfusions: No Blood Transfusion Reaction: No - Airway Assessment C-Spine Mobility Assessed: Yes (MP 2, TMD 3, limited neck ROM) TMJ Mobility Assessed: Yes Dentition: Edentulous - Neurological Assessment Level of Consciousness: Awake, Alert, Appropriate, Follows Commands Hx Seizures: No Numbness or tingling in extremities: No - Anesthesia Plan Anesthesia Risk discussed: Yes Anesthesia Plan: Verified ASA Class: III Anesthesia Type: MAC [facility] History I have reviewed the patient's past medical history: Yes Medical History: Reports:: Carotid Stenosis, Diabetes Mellitus Type 2, Hyperlipidemia, Hypertension Denies:: Cancer, Diabetes Mellitus Type 1, Internal Pacemaker, MRSA, Seizures *Have you ever received a pneumonia vaccine?: Yes *Have you received a flu vaccine this season?: Yes Other Medical History: Reports: Arthritis. Denies: Blood Transfusion Reaction Comment:: Chronic steroid use 3-4 years Anesthesia experience/problems:: None Laterality Cases: Bilateral: Total Knee Replacement Other Surgeries: Yes: Appendectomy, Cardiac Catheterization, Colonoscopy, Coronary Stent. No: Pacemaker Amputation: No Fractures: Yes - *Social History Last grade of school completed: High school graduate Smoking Status: Never smoker Alcohol Intake: never Substance Use Type: denies use *Occupational Status:: retired Housing: house Household Members: spouse *Travel in the last 8 weeks: None Family Hx:: Cancer
[2020-08-27 10:50] VITALS: BP 104/46; PULSE 60; RESP 16; TEMP 36.6; O2SAT 93
[2020-08-27 11:00] VITALS: BP 116/69; PULSE 61; RESP 16; O2SAT 96
[2020-08-27 11:10] VITALS: BP 110/63; PULSE 58; RESP 16; TEMP 36.6; O2SAT 98
[2020-08-27 11:20] VITALS: BP 115/80; PULSE 61; RESP 16; TEMP 36.6; O2SAT 97
--- NOTE | 2020-08-27 16:28 | HMH.OPNOTE ---
Date of procedure: 08/27/20 Pre-op Diagnosis:: Elevated PSA Post-op Diagnosis:: Elevated PSA Procedure performed:: Transrectal ultrasound with prostate biopsy Surgeon:: William Villalpando MD [employer]:: Jose R Chou Anesthesia: MAC Estimated blood loss (mL): 0 Clinical Note:: 84-year-old white male with a rising PSA presents for prostate biopsy. His recent PSA was 14.2. It was 9 6 months ago and was within normal limits prior to that. Operative findings:: Transrectal ultrasound revealed a heterogeneous appearance of the prostate tissue. Prostate measured at 41 cm?. Operative note:: Patient taken to the operating room after informed consent was obtained. On the stretcher he was placed into the left lateral decubitus position and monitored anesthesia care administered. After analgesia the transrectal ultrasound probe was placed into the rectum. Patient had been compliant with antibiotics the day before and the day of his procedure. He is did state some difficulty with the enema this morning. The transrectal ultrasound was used to measure the prostate at 41 cm?. There was a heterogeneous appearance of the prostatic parenchyma. There were no hypo or hyperechoic areas. Local anesthetic placed in each neurovascular bundle and 12 biopsies then taken in a systematic fashion. Patient tolerated procedure well. Probe removed and patient transferred to recovery in stable condition. Condition: stable Disposition: same day Specimens:: Prostate biopsies x12 Complications:: None
== END 2020-08-27 11:30 | disposition home or self-care (01) ==
LOC: OR 07:41
PROVIDERS: PCP Nurse Practitioner Family; Visit Provider Urology
PROC: (CPT 55700; principal; 2020-08-27 09:45)
DX: R97.20 Elevated prostate specific antigen [PSA] (principal); E11.9 Type 2 diabetes mellitus without complications; I65.29 Occlusion and stenosis of unspecified carotid artery; I10 Essential (primary) hypertension; E78.5 Hyperlipidemia, unspecified; Z79.4 Long term (current) use of insulin; Z79.899 Other long term (current) drug therapy
CPT/HCPCS: 55700; 76942; 82962; 88305

== ENCOUNTER → 2020-09-12 08:36 | Outpatient (CLI) | payer MEDICARE, SELFPAY ==
--- NOTE | 2020-09-12 08:36 | NM_ITS ---
PROCEDURE: NM BONE SCAN WHOLE BODY CLINICAL INDICATION: prostate cancer COMPARISON: CT CT ABDOMEN PELVIS WO CON from 09/14/2020 TECHNIQUE: Dose 26.9 mCi technetium MDP FINDINGS: There is increased activity at the L4-[address] scan done of the same day shows facet arthritic changes at this region with degenerative disc disease. Contamination artifact noted at the perineal region. Photopenic defects noted from prior bilateral total knee replacements. Nonspecific articular activity noted in the shoulders. IMPRESSION: As above, no evidence of metastatic disease Dictated by: Abiodun Clements MD 09/14/2020 09:30 Abiodun Clements MD in [place] 09/14/2020 09:30
--- NOTE | 2020-09-12 10:00 | HMH.ITSHM ---
Current Home Medications as stated by this patient Nick Espinal or patient support representative. []PREDNISONE OMEPRAZOLE METOPROLOL LISINOPRIL LEVOFLOXACIN AMLODIPINE TAMSULOSIN OMEGA 3 LEVOTHYROXINE INSULIN ASA
== END ==
PROVIDERS: PCP Nurse Practitioner Family; Visit Provider Urology
DX: C61 Malignant neoplasm of prostate (principal)
CPT/HCPCS: 78306; A9503

== ENCOUNTER → 2020-09-14 08:29 | Outpatient (CLI) | payer MEDICARE, SELFPAY ==
--- NOTE | 2020-09-14 08:29 | CT_ITS ---
PROCEDURE: CT CHEST WO CON CLINICAL INDICATION: prostate cancer COMPARISON: No exams were available for comparison TECHNIQUE: Axial images obtained with sagittal and coronal reformats. All CT scans at the facility use one or more dose reduction, viz: automated exposure control, ma/kV adjustment per patient size (including targeted exams where dose is matched to indication, i.e. head), or iterative reconstruction technique. FINDINGS: HEART AND MEDIASTINAL STRUCTURES: There are a few small mediastinal lymph nodes measuring to 1.4 by 1 cm. Coronary artery calcifications are present. No mediastinal or hilar mass. LUNGS AND PLEURAL SPACES: Noncalcified nodule in the right upper lobe laterally at 8 x 6 mm. Scattered areas of scarring and/or atelectatic change. Noncalcified 6 mm nodules present in the right middle lobe. No effusions or infiltrates. BONY STRUCTURES: There are degenerative changes in the thoracic spine and shoulders. No bony destructive process. No blastic lesions apparent. There are few small axillary lymph nodes. No dominant adenopathy. IMPRESSION: 1. There are at least 2 noncalcified pulmonary nodules 8 x 6 mm right upper lobe and 6 mm right middle lobe. These are indeterminate and six-month follow-up is suggested. 2. Mildly prominent mediastinal lymph nodes which are borderline in size. Follow-up suggested. 3. Scattered areas of scarring and/or atelectatic change Dictated by: Abiodun Clements MD 09/15/2020 06:40 Abiodun Clements MD in [place] 09/15/2020 06:40
--- NOTE | 2020-09-14 08:29 | CT_ITS ---
PROCEDURE: CT ABDOMEN PELVIS WO CON CLINICAL INDICATION: prostate cancer COMPARISON: No exams were available for comparison TECHNIQUE: Axial images obtained with sagittal and coronal reformats. All CT scans at the facility use one or more dose reduction, viz: automated exposure control, ma/kV adjustment per patient size (including targeted exams where dose is matched to indication, i.e. head), or iterative reconstruction technique. FINDINGS: LOWER THORAX: Coronary artery calcifications noted. ABDOMEN & PELVIS: The liver, gallbladder, and adrenal glands and pancreas have an unremarkable unenhanced appearance. 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 A 1 cm hypodensity is present in the central aspect of the spleen. This is nonspecific. Exophytic isodense the projects off the posterior aspect of the right kidney suggesting a renal cyst at 1.9 cm. No renal or ureteral calculi. No hydronephrosis. No intestinal obstruction or free air. There is a mild amount of retained colonic feces. No evidence of appendicitis. There is diffuse colonic diverticulosis but no evidence of diverticulitis. There is mild enlargement of the prostate at 5 x 4 cm. Unremarkable appearing urinary bladder. No pelvic mass or adenopathy. No abnormal fluid collections. There is a small umbilical hernia which contains fat. There are degenerative changes of the lumbar spine. No bony destructive process. No blastic lesions. There are degenerative changes of the hips. Tortuosity noted of the abdominal aorta but no evidence of aneurysm. IMPRESSION: 1. Overall no convincing evidence of metastatic disease. 2. Colonic diverticulosis without diverticulitis. 3. Other nonacute findings as described above. Dictated by: Abiodun Clements MD 09/15/2020 06:46 Abiodun Clements MD in [place] 09/15/2020 06:46
== END ==
PROVIDERS: PCP Nurse Practitioner Family; Visit Provider Urology
DX: C61 Malignant neoplasm of prostate (principal)
CPT/HCPCS: 71250; 74176

== ENCOUNTER 2020-09-28 09:43 | Inpatient (IN) | payer MEDICARE, SELFPAY ==
[2020-09-28] VITALS (10 sets, daily range): BP systolic 103–147; BP diastolic 63–79; PULSE 63–82; RESP 18–40; TEMP 36.6–36.8; O2SAT 82–94; BMI 30.1; BMI 30.2
--- NOTE | 2020-09-28 09:56 | HMH.EDGENADL ---
ED Disposition Clinical Impression: COVID-19, Acute hypoxemic respiratory failure due to COVID-19 Disposition: Admitted As Inpatient Condition on Discharge: Fair Referrals: Kitty Phan APRN [Primary Care Provider] - - Critical Care Critical Care Time: No Attestation: On , the high probability of a clinically significant, sudden or life threatening deterioration of the following system(s) required my full and direct attention, intervention and personal management. The time I documented below is in addition to time spent performing reported procedures but includes the following listed in this critical care notation. Medical Decision Making - Medical Records Medical records reviewed: Yes: I reviewed the patient's medical records. - Anant Inquiry Pt receiving controlled substance: No Vital Signs: 09/28/20 09:44 09/28/20 10:36 09/28/20 12:27 Temperature 98.2 F Temperature Source Oral Pulse Rate [Radial] 82 74 69 Respiratory Rate 40 H 18 20 Blood Pressure [Right Arm] 108/71 L 103/63 L 116/65 Blood Pressure Mean [Right Arm] 83 76 82 Blood Pressure Position [Right Arm] Sitting 02 Sat by Pulse Oximetry 93 L 91 L 94 L Oxygen Delivery Method Nasal Cannula Nasal Cannula Oxygen Flow Rate (LPM) 4 4 - Lab Data Lab Results 09/28/20 09:57: Specimen Source Left radial, O2 % 4l, ABG pH 7.40, ABG pCO2 32.7 L, ABG pO2 56.5 L, ABG HCO3 19.7 L, ABG Total CO2 20.7 L, ABG O2 Saturation 90, ABG Base Excess -5.1 L, Abiodun Test Acceptable 09/28/20 10:00: WBC 6.5, RBC 4.68, Hgb 14.5, Hct 43.9, MCV 93.8, MCH 30.9, MCHC 33.0, RDW 13.7, Plt Count 133 L, MPV 9.1, Neut % (Auto) 80.1 H, Lymph % (Auto) 14.0, [place] % (Auto) 5.4, Eos % (Auto) 0.2, Baso % (Auto) 0.5, Neut # (Auto) 5.2, Lymph # (Auto) 0.9, [place] # (Auto) 0.4, Eos # (Auto) 0.0, Baso # (Auto) 0.0 09/28/20 10:00: Sodium 136, Potassium 4.1, Chloride 104, Carbon Dioxide 25, Anion Gap 11.1, BUN 48 H, Creatinine 1.90 H, Estimated Creat Clear 40, Estimated GFR 34 L, Est GFR ( Amer) 41 L, Glucose 318 H, Calcium 9.2, Total Bilirubin 0.7, AST 25, ALT 13, Alkaline Phosphatase 69, Troponin I 0.02, Total Protein 7.0, Albumin 3.6, Globulin 3.4 H, Albumin/Globulin Ratio 1.1 09/28/20 10:00: D-Dimer > 8.10 H 09/28/20 10:00: Lactate 1.5 09/28/20 10:00: Chlamy pneumoniae PCR Not detected, Adenovirus (PCR) Not detected, B. pertussis DNA (PCR) Not detected, Coronavirus OC43 (PCR) Not detected, Coronavirus HKU1 (PCR) Not detected, Coronavirus 229E (PCR) Not detected, SARS-CoV-2 (PCR) Detected A, Coronavirus NL63 (PCR) Not detected, Human Metapneumovir PCR Not detected, Influenza A (H1) PCR Not detected, Influ A (H1N1/09) PCR Not detected, Influenza A (H3) PCR Not detected, Influenza Type A (PCR) Not detected, Influenza Type B (PCR) Not detected, M. pneumoniae (PCR) Not detected, Parainfluenza 1 (PCR) Not detected, Parainfluenza 2 (PCR) Not detected, Parainfluenza 3 (PCR) Not detected, Parainfluenza 4 (PCR) Not detected, RSV (PCR) Not detected, Entero/Rhino (PCR) Not detected 09/28/20 12:05: Specimen Source Left radial, O2 % 3l, ABG pH 7.39, ABG pCO2 34.3 L, ABG pO2 59.9 L, ABG HCO3 20.1 L, ABG Total CO2 21.2 L, ABG O2 Saturation 91, ABG Base Excess -4.9 L, Abiodun Test Acceptable Result diagrams: 09/28/20 10:00 09/28/20 10:00 Orders (Tests/Meds): ED MEDICATIONS Generic Name Dose Route Start Last Admin Trade Name Freq PRN Reason Stop Dose Admin Acetaminophen 650 mg 09/28/20 11:51 Acetaminophen 325mg Tab PO 10/28/20 11:50 Q6HP PRN Mild pain,fever,headache Ascorbic Acid 500 mg 09/28/20 13:00 Ascorbic Acid 500mg Tab PO 10/28/20 12:59 QID PADILLA Dexamethasone Sodium Phosphate 6 mg 09/28/20 12:00 Dexamethasone 4mg/Ml 1ml Vial IV 10/28/20 11:59 DAILY [facility] Ergocalciferol 50,000 unit 09/28/20 12:00 Ergocalciferol 50,000 Units (1.25mg) Capsule PO 10/28/20 11:59 WEEKLY [facility] Famotidine 20 mg 09/28/20 12:00 Famotidine 20mg Tablet PO 10/28/20
--- NOTE | 2020-09-28 09:57 | XR_ITS ---
PROCEDURE: XR CHEST PORTABLE CLINICAL HISTORY: sob Shortness of breath and weakness COMPARISON: CT CT CHEST WO CON from 09/14/2020 FINDINGS: Normal heart size. There is mild prominence of the AP window which may be related to the aortic tortuosity/ectasia COPD changes. Patchy density is present in the left midlung may be due to patchy area of infiltrate and/or atelectatic change. Suspected pericardial fat pad in the left lung base. There is mild pleural thickening in the left midlung laterally. Osteoarthritic changes are present in the right shoulder. IMPRESSION: COPD with possible patchy infiltrate in the left midlung with associated pleural thickening Dictated by: Abiodun Clements MD 09/28/2020 11:24 Abiodun Clements MD in [place] 09/28/2020 11:24
--- NOTE | 2020-09-28 10:11 | ECG_ITS ---
APPROVED REPORT Exam: Resting ECG HR:76 bpm ECG Measurements Heart Rate 76 AXES WV 140 P 46 QRSd 128 QRS -20 QT 408 T 9 QTc 459 Conclusion Normal sinus rhythm Right bundle branch block Abnormal ECG Electronically signed by : Star Bryant, 09/28/2020 18:01:12
[2020-09-28 10:15] LABS: Adenovirus,PCR Not Detected (NotDetected); Bordetella Pertussis Not Detected (NotDetected); Chlamydophila Pneumoniae, PCR Not Detected (NotDetected); Coronavirus 229E Not Detected (NotDetected); Coronavirus NL63 Not Detected (NotDetected); Coronavirus OC43 Not Detected (NotDetected); Coronovirus HKU1,PCR Not Detected (NotDetected); Human Metapneumovirus Not Detected (NotDetected); Influenza A, PCR Not Detected (NotDetected); Influenza AH1, 2009 Not Detected (NotDetected); Influenza AH1, PCR Not Detected (NotDetected); Influenza AH3,PCR Not Detected (NotDetected); Influenza B, PCR Not Detected (NotDetected); Mycoplasma Pneumoniae, PCR Not Detected (NotDetected); Parainfluenza 1, PCR Not Detected (NotDetected); Parainfluenza 2, PCR Not Detected (NotDetected); Parainfluenza 3, PCR Not Detected (NotDetected); Parainfluenza 4, PCR Not Detected (NotDetected); Respiratory Syncytial Virus Not Detected (NotDetected); Rhinovirus/Enterovirus Not Detected (NotDetected)
[2020-09-28 10:19] LABS: ABG Base Excess -5.1 mmol/L (-2.4-2.3); ABG HCO3 19.7 mmhg (22.0-26.0); ABG Oxygen Saturation 90 % (90-100); ABG PCO2 32.7 mmhg (35.0-45.0); ABG PO2 56.5 mmhg (80-100); ABG TCO2 20.7 mmhg (23-27)
[2020-09-28 10:20] LABS: Allen's Test Acceptable; Oxygen 4L %; Source Left Radial
[2020-09-28 10:21] LABS: Basophils % 0.5 % (0.1-2.0); Eosinophils % 0.2 % (0.1-12.0); Hematocrit 43.9 % (42.0-52.0); Hemoglobin 14.5 g/dL (14.1-18.0); Lymphocytes # 0.9 K/mm3 (0.7-4.5); Mean Corpuscular Hemoglobin 30.9 pg (27.0-31.2); Mean Corpuscular Volume 93.8 fl (80-94); Mean Platelet Volume 9.1 fl (7.4-10.4); Monocytes # 0.4 K/mm3 (0.1-1.0); Monocytes % 5.4 % (1.7-9.3); Neutrophils # 5.2 K/mm3 (1.8-7.8); Neutrophils % 80.1 % (37.0-80.0); Platelet Count 133 K/mm3 (142-424); Red Blood Count 4.68 M/mm3 (4.60-6.20); Red Cell Distribution Width 13.7 % (11.5-17.5); White Blood Count 6.5 K/mm3 (4.8-10.8)
[2020-09-28 10:32] LABS: Alanine Aminotransferase 13 U/L (12-78); Albumin Level 3.6 g/dl (3.5-5.0); Albumin/Globulin Ratio 1.1 (1.1-1.8); Alkaline Phosphatase 69 U/L (38-126); Anion Gap 11.1 mEq/L (5-15); Aspartate Amino Transferase 25 U/L (17-59); Bilirubin,Total 0.7 mg/dl (0.2-1.3); Blood Urea Nitrogen 48 mg/dl (9-20); Calcium 9.2 mg/dl (8.4-10.2); Carbon Dioxide 25 mmol/L (22.0-30.0); Chloride 104 mmol/L (98-107); Creatinine Clearance Estimated 40 mL/min (50-200); Estimated Glomerular Filt Rate 34 ml/min (>60); GFR (African American) 41 ML/MIN (>60); Globulin 3.4 g/dL (1.3-3.2); Glucose 318 mg/dl (74-100); Potassium 4.1 mmoL/L (3.5-5.1); Sodium 136 mmol/L (136-145)
[2020-09-28 10:33] LABS: Lactic Acid 1.5 mmol/L (0.7-2.1)
[2020-09-28 10:37] LABS: D-Dimer > 8.10 ug/mL (0.0-0.5)
[2020-09-28 10:46] LABS: Troponin I 0.02 ng/ml (0.00-0.034)
[2020-09-28 11:41] LABS: Coronavirus 19, PCR Detected (NotDetected)
[2020-09-28 12:22] LABS: ABG Base Excess -4.9 mmol/L (-2.4-2.3); ABG HCO3 20.1 mmhg (22.0-26.0); ABG Oxygen Saturation 91 % (90-100); ABG PCO2 34.3 mmhg (35.0-45.0); ABG PH 7.39 mmol/L (7.35-7.45); ABG PO2 59.9 mmhg (80-100); ABG TCO2 21.2 mmhg (23-27)
[2020-09-28 12:24] LABS: Allen's Test Acceptable; Oxygen 3L %; Source Left Radial
--- NOTE | 2020-09-28 13:30 | PC.NURSE ---
daughter at bedside. updated on plan of care
--- NOTE | 2020-09-28 14:04 | PC.NURSE ---
Dr Heath speaking with Dr Dunn
--- NOTE | 2020-09-28 14:30 | PC.NURSE ---
pt resting updated on plan of care
--- NOTE | 2020-09-28 15:00 | PC.NURSE ---
daughter at bedside
--- NOTE | 2020-09-28 15:23 | P.CONPHA_ITS ---
[facility] Pharmacy VTE Monitoring - Patient Demographics Admission date: 09/28/20 Report Date: 09/28/20 Time: 15:23 Allergies/Adverse Reactions: Patient Allergies candesartan [From Atacand HCT] Allergy (Severe, Verified 09/20/20 09:41) PANCREATITIS hydrochlorothiazide [From Atacand HCT] Allergy (Severe, Verified 09/20/20 09:41) PANCREATITIS Height: 1.78 m Weight: 95.254 kg Patient Problems: Current Active Problems COVID-19 (Acute) Acute hypoxemic respiratory failure due to COVID-19 (Acute) - VTE Risk Labs: VTE Related Lab Results Hgb 14.5 g/dL (14.1-18.0) 09/28/20 10:00 Hct 43.9 % (42.0-52.0) 09/28/20 10:00 Plt Count 133 K/mm3 (142-424) L 09/28/20 10:00 BUN 48 mg/dl (9-20) H 09/28/20 10:00 Creatinine 1.90 mg/dl (0.66-1.25) H 09/28/20 10:00 Estimated Creat Clear 40 mL/min (50-200) 09/28/20 10:00 - Prophylaxis Types of VTE Prophylaxis: Pharmacological Location of Applied Device: Bilateral Lower Extremeties Pharmacologic Type: Heparin (HEPARIN ORDERED)
--- NOTE | 2020-09-28 15:30 | PC.NURSE ---
report to bo de león
--- NOTE | 2020-09-28 15:40 | P.CONPHA_ITS ---
[facility] Pharmacy VTE Monitoring - Patient Demographics Admission date: 09/28/20 Report Date: 09/28/20 Time: 15:40 Allergies/Adverse Reactions: Patient Allergies candesartan [From Atacand HCT] Allergy (Severe, Verified 09/20/20 09:41) PANCREATITIS hydrochlorothiazide [From Atacand HCT] Allergy (Severe, Verified 09/20/20 09:41) PANCREATITIS Height: 1.78 m Weight: 95.254 kg Patient Problems: Current Active Problems COVID-19 (Acute) Acute hypoxemic respiratory failure due to COVID-19 (Acute) - VTE Risk Labs: VTE Related Lab Results Hgb 14.5 g/dL (14.1-18.0) 09/28/20 10:00 Hct 43.9 % (42.0-52.0) 09/28/20 10:00 Plt Count 133 K/mm3 (142-424) L 09/28/20 10:00 BUN 48 mg/dl (9-20) H 09/28/20 10:00 Creatinine 1.90 mg/dl (0.66-1.25) H 09/28/20 10:00 Estimated Creat Clear 40 mL/min (50-200) 09/28/20 10:00 Clinical Trial Participant: No - Prophylaxis VTE Prophylaxis Ordered?: Yes Types of VTE Prophylaxis: TEDS Knee High Location of Applied Device: Bilateral Lower Extremeties
--- NOTE | 2020-09-28 18:07 | HMH.HP ---
*Admission Date: 09/28/20 *Chief complaint: SOA, fatigue *History of present illness: Mr. Espinal is an 84-year-old male with history of arthritis, prostate cancer, hypertension, and diabetes on insulin daily who presented to the ER with worsening weakness and shortness of breath. He stated he has felt bad over the past 5 to 7 days. Said he had worsening weakness, malaise, shortness of breath that got worse over the past 2 to 3 days. Feeling rundown and having no energy. Denies chest pain, nausea, vomiting, diarrhea. Intermittent dry cough. No change in smell or taste. Was concerned because he had little energy to do anything and felt that he needed to be checked out to give him a boost. Upon arrival to the ER, concern for hypoxia and symptoms suggestive of COVID-19 infection. Initial labs showed he was positive for COVID-19. In the setting of hyperglycemia, abnormal kidney function, new oxygen requirement, patient was admitted for further management. On interview after arrival to the floor, he denies any known sick contacts. Adequate urine output. Denies any fevers but has had some cold chills. No focal neurologic deficits, blurry vision, slurred speech or other neurologic complaints. Patient was started on Covid protocol, supplemental oxygen, IV fluids. [facility] History I have reviewed the patient's past medical history: Yes Medical History: Reports:: BPH, Cancer (PROSTATE), Carotid Stenosis, Diabetes Mellitus Type 2, Hyperlipidemia, Hypertension Denies:: Diabetes Mellitus Type 1, Internal Pacemaker, MRSA, Seizures *Have you ever received a pneumonia vaccine?: No *Have you received a flu vaccine this season?: Yes Other Medical History: Reports: Arthritis, Hypothyroidism. Denies: Blood Transfusion Reaction Laterality Cases: Bilateral: Arthroscopy Knee Other Surgeries: Yes: No Previous Surgery, Appendectomy, Cardiac Catheterization, Colonoscopy, Coronary Stent. No: Pacemaker Amputation: No Fractures: Yes - *Social History Last grade of school completed: High school graduate Smoking Status: Never smoker Alcohol Intake: never Substance Use Type: denies use *Occupational Status:: retired Housing: house Household Members: spouse *Travel in the last 8 weeks: None Family Hx:: Cancer Review of Systems - Review of Systems Review of systems:: pertinent systems reviewed and negative unless documented below (14 point review of systems performed, pertinent positives and negatives as per HPI) Meds Home Medications Medication Instructions Recorded Confirmed Type amlodipine 5 mg tablet 5 mg PO DAILY tab 02/03/20 09/28/20 History lisinopril 20 mg tablet 20 mg PO DAILY tab 02/03/20 09/28/20 History metoprolol succinate 100 mg 50 mg PO BID 02/03/20 09/28/20 History tablet,extended release 24 hr omeprazole 20 mg capsule,delayed 20 mg PO DAILY cap 02/03/20 09/28/20 History release Aspirin [Aspirin 81mg chewable 81 mg PO DAILY 08/22/20 09/28/20 History tab] Insulin Aspart Prot/Insuln Asp 100 ml IJ BID 08/22/20 09/28/20 History [Novolog Mix 70/30 Flexpen 100 Units/mL 3mL] Levothyroxine Sodium 112 mcg PO DAILY 08/22/20 09/28/20 History [Levothyroxine 112mcg (0.112mg) Tab] Bartley-3 Fatty Acids/Fish Oil 1 each PO DAILY 08/27/20 09/28/20 History [Bartley 3 Fish Oil Softgel] Tamsulosin HCl [Flomax 0.4mg 0.4 mg PO HS 08/27/20 09/28/20 History capsule] predniSONE [Prednisone 5mg 5 mg PO DAILY 08/27/20 09/28/20 History Tab] Allergies Allergy/AdvReac Type Severity Reaction Status Date / Time candesartan Allergy Severe PANCREATITI Verified 09/20/20 09:41 [From Atacand HCT] S hydrochlorothiazide Allergy Severe PANCREATITI Verified 09/20/20 09:41 [From Atacand HCT] S Exam Vital signs and Labs for Last 24 Hours: Temp Pulse Resp BP Pulse Ox 98 F 78 36 H 125/74 91 L 09/28/20 16:12 09/28/20 16:12 09/28/20 16:12 09/28/20 16:12 09/28/20 16:00 Laboratory Results - last
[2020-09-28 19:10] LABS: POC Glucose,Bedside 335 (70-110)
[2020-09-28 21:48] LABS: POC Glucose,Bedside 325 (70-110)
--- NOTE | 2020-09-28 23:18 | PC.NURSE ---
Sputum cup placed at bedside. Pt verbalized understanding and said he would report to staff when it is ready.
[2020-09-29] VITALS: BP 143/75; PULSE 62; RESP 20; TEMP 36.9; O2SAT 94
--- NOTE | 2020-09-29 01:38 | PC.NURSE ---
pt has a cup fpr SPT.
[2020-09-29 05:00] VITALS: BMI 30.4
[2020-09-29 05:20] LABS: Basophils % 0.7 % (0.1-2.0); Hematocrit 45.7 % (42.0-52.0); Hemoglobin 14.9 g/dL (14.1-18.0); Lymphocytes # 0.7 K/mm3 (0.7-4.5); Lymphocytes % 15.8 % (10-50); Mean Corpuscular HGB Conc 32.5 g/dL (31.8-35.4); Mean Corpuscular Hemoglobin 31.2 pg (27.0-31.2); Mean Corpuscular Volume 95.8 fl (80-94); Mean Platelet Volume 8.7 fl (7.4-10.4); Monocytes # 0.2 K/mm3 (0.1-1.0); Monocytes % 4.4 % (1.7-9.3); Neutrophils # 3.6 K/mm3 (1.8-7.8); Platelet Count 128 K/mm3 (142-424); Red Blood Count 4.77 M/mm3 (4.60-6.20); Red Cell Distribution Width 13.7 % (11.5-17.5); White Blood Count 4.5 K/mm3 (4.8-10.8)
[2020-09-29 05:23] LABS: Chloride 107 mmol/L (98-107); Sodium 138 mmol/L (136-145)
[2020-09-29 05:24] LABS: Potassium 4.8 mmoL/L (3.5-5.1)
[2020-09-29 05:26] LABS: Alanine Aminotransferase 25 U/L (12-78); Albumin Level 3.6 g/dl (3.5-5.0); Alkaline Phosphatase 84 U/L (38-126); Anion Gap 13.8 mEq/L (5-15); Aspartate Amino Transferase 38 U/L (17-59); Bilirubin,Total 0.6 mg/dl (0.2-1.3); Blood Urea Nitrogen 45 mg/dl (9-20); Calcium 9.1 mg/dl (8.4-10.2); Carbon Dioxide 22 mmol/L (22.0-30.0); Creatinine Clearance Estimated 61 mL/min (50-200); Estimated Glomerular Filt Rate 53 ml/min (>60); GFR (African American) 64 ML/MIN (>60); Globulin 3.5 g/dL (1.3-3.2); Glucose 277 mg/dl (74-100); Total Protein,Serum 7.1 g/dl (6.3-8.2)
[2020-09-29 05:27] LABS: Magnesium 1.7 mg/dl (1.6-2.3)
[2020-09-29 06:18] LABS: POC Glucose,Bedside 281 (70-110)
--- NOTE | 2020-09-29 07:06 | PC.NURSE ---
Pt is A&Ox4. Fine crackles heard bilaterally t/o all lung ansari. No cough noted. Pt has ambulated independently to and from bathroom w/ steady gait and balance. Active bowel sounds in all 4 quads. No BM noted this shift. No other acute changes or complaints at this time.
--- NOTE | 2020-09-29 07:21 | HMH.ACPN2 ---
Internal Medicine - PN: Subj *Date: 09/29/20 *Time: 08:36 Interval history: Mr. Espinal looks stable this morning. Normotensive, oxygen saturation stable on 3 L nasal cannula oxygen. Remains afebrile. Tolerating good p.o. intake. Drinking well on his own. Reports shortness of breath but denies chest pain, nausea, vomiting, confusion. Ambulating to bathroom, in chair at bedside on exam in pleasant mood. Exam Vital signs and Labs for Last 24 Hours: Temp Pulse Resp BP Pulse Ox 98.4 F 62 20 143/75 H 94 L 09/29/20 00:00 09/29/20 00:00 09/29/20 00:00 09/29/20 00:00 09/29/20 00:00 Laboratory Results - last 24 hr 09/28/20 09:57: Specimen Source Left radial, O2 % 4l, ABG pH 7.40, ABG pCO2 32.7 L, ABG pO2 56.5 L, ABG HCO3 19.7 L, ABG Total CO2 20.7 L, ABG O2 Saturation 90, ABG Base Excess -5.1 L, Abiodun Test Acceptable 09/28/20 10:00: WBC 6.5, RBC 4.68, Hgb 14.5, Hct 43.9, MCV 93.8, MCH 30.9, MCHC 33.0, RDW 13.7, Plt Count 133 L, MPV 9.1, Neut % (Auto) 80.1 H, Lymph % (Auto) 14.0, [place] % (Auto) 5.4, Eos % (Auto) 0.2, Baso % (Auto) 0.5, Neut # (Auto) 5.2, Lymph # (Auto) 0.9, [place] # (Auto) 0.4, Eos # (Auto) 0.0, Baso # (Auto) 0.0 09/28/20 10:00: Sodium 136, Potassium 4.1, Chloride 104, Carbon Dioxide 25, Anion Gap 11.1, BUN 48 H, Creatinine 1.90 H, Estimated Creat Clear 40, Estimated GFR 34 L, Est GFR ( Amer) 41 L, Glucose 318 H, Calcium 9.2, Total Bilirubin 0.7, AST 25, ALT 13, Alkaline Phosphatase 69, Troponin I 0.02, Total Protein 7.0, Albumin 3.6, Globulin 3.4 H, Albumin/Globulin Ratio 1.1 09/28/20 10:00: D-Dimer > 8.10 H 09/28/20 10:00: Lactate 1.5 09/28/20 10:00: Chlamy pneumoniae PCR Not detected, Adenovirus (PCR) Not detected, B. pertussis DNA (PCR) Not detected, Coronavirus OC43 (PCR) Not detected, Coronavirus HKU1 (PCR) Not detected, Coronavirus 229E (PCR) Not detected, SARS-CoV-2 (PCR) Detected A, Coronavirus NL63 (PCR) Not detected, Human Metapneumovir PCR Not detected, Influenza A (H1) PCR Not detected, Influ A (H1N1/09) PCR Not detected, Influenza A (H3) PCR Not detected, Influenza Type A (PCR) Not detected, Influenza Type B (PCR) Not detected, M. pneumoniae (PCR) Not detected, Parainfluenza 1 (PCR) Not detected, Parainfluenza 2 (PCR) Not detected, Parainfluenza 3 (PCR) Not detected, Parainfluenza 4 (PCR) Not detected, RSV (PCR) Not detected, Entero/Rhino (PCR) Not detected 09/28/20 12:05: Specimen Source Left radial, O2 % 3l, ABG pH 7.39, ABG pCO2 34.3 L, ABG pO2 59.9 L, ABG HCO3 20.1 L, ABG Total CO2 21.2 L, ABG O2 Saturation 91, ABG Base Excess -4.9 L, Abiodun Test Acceptable 09/28/20 19:03: POC Glucose 335 H* 09/28/20 21:35: POC Glucose 325 H* 09/29/20 05:02: Sodium 138, Potassium 4.8, Chloride 107, Carbon Dioxide 22, Anion Gap 13.8, BUN 45 H, Creatinine 1.30 H D, Estimated Creat Clear 61, Estimated GFR 53 L, Est GFR ( Amer) 64 D, Glucose 277 H, Calcium 9.1, Magnesium 1.7, Total Bilirubin 0.6, AST 38 D, ALT 25 D, Alkaline Phosphatase 84, Total Protein 7.1, Albumin 3.6, Globulin 3.5 H, Albumin/Globulin Ratio 1.0 L 09/29/20 05:02: WBC 4.5 L D, RBC 4.77, Hgb 14.9, Hct 45.7, MCV 95.8 H, MCH 31.2, MCHC 32.5, RDW 13.7, Plt Count 128 L, MPV 8.7, Neut % (Auto) 79.0, Lymph % (Auto) 15.8, [place] % (Auto) 4.4, Eos % (Auto) 0.0 L, Baso % (Auto) 0.7, Neut # (Auto) 3.6, Lymph # (Auto) 0.7, [place] # (Auto) 0.2, Eos # (Auto) 0.0, Baso # (Auto) 0.0 09/29/20 06:06: POC Glucose 281 H I & O for Last 24 hours: Intake & Output 09/26/20 09/27/20 09/28/20 09/29/20 23:59 23:59 23:59 23:59 Weight 98.203 kg 98.486 kg Narrative: - Constitutional minimal distress on 3 L nasal cannula, obese - *Routine HEENT Exam Head: Present: normocephalic Eye: Present: EOMI, PERRL ENT: Present: mucous membranes moist - *Routine Neck Exam Present: supple. Absent: lymphadenopathy - *Routine Respiratory Exam Present: crackles (Bilateral bases posterior lung ansari,) Comments: Good air movement bilaterally wheeze - *Routine Cardiovas
[2020-09-29 08:00] VITALS: BP 131/68; PULSE 84; RESP 19; TEMP 36.5; O2SAT 91
[2020-09-29 11:24] LABS: POC Glucose,Bedside 296 (70-110)
--- NOTE | 2020-09-29 11:38 | HMH.PHAINT ---
MEDICATION RECONCILIATION COMPLETED ON PATIENT USING EXTERNAL FILL HISTORY FROM PHARMACY AND LIST FROM MD OFFICE. -MISAEL HUBBARDD
[2020-09-29 16:00] VITALS: BP 134/74; PULSE 66; RESP 17; TEMP 36.3; O2SAT 95
[2020-09-29 17:16] LABS: POC Glucose,Bedside 412 (70-110)
--- NOTE | 2020-09-29 19:54 | PC.NURSE ---
PT IS SITTING UP IN THE CHAIR. NO COMPLAINTS OF DISCOMFORT OR SOA. ALERT AND ORIENTED X4. AMBULATES TO THE BATHROOM. O2 SATURATION HAS MAINTAINED 92-96% ON 3 L NC. LUNG SOUNDS HAVE FINE CRACKLES IN THE BASES. EATING AND DRINKING WELL. ABDOMEN SOFT/NON TENDER WITH ACTIVE BOWEL SOUNDS. PT HAS HAD ELEVATED BLOOD SUGARS THIS SHIFT. PT STATED HE HAD A BOWEL MOVEMENT THIS MORNING. WILL CONTINUE TO MONITOR.
[2020-09-29 20:00] VITALS: BP 134/64; PULSE 77; RESP 20; TEMP 36.8; O2SAT 90
[2020-09-29 20:49] LABS: POC Glucose,Bedside 313 (70-110)
[2020-09-30] VITALS: BP 142/79; PULSE 62; RESP 23; TEMP 36.3; O2SAT 96
[2020-09-30 04:00] VITALS: BP 143/74; PULSE 61; RESP 20; TEMP 36.8; O2SAT 91
[2020-09-30 04:52] VITALS: BMI 30.8
--- NOTE | 2020-09-30 05:00 | PC.NURSE ---
Pt is A&Ox4. Fine crackles heard at bilat bases. New speci cup placed in pt's room for sputum sample. 1st one sent off, showed too many epithelial cells. No edema noted to extremities. Pt continues to ambulate independently t/o room. No other acute changes or complaints at this time.
[2020-09-30 06:47] LABS: POC Glucose,Bedside 141 (70-110)
[2020-09-30 07:35] LABS: Basophils % 0.3 % (0.1-2.0); Hematocrit 45.2 % (42.0-52.0); Hemoglobin 14.7 g/dL (14.1-18.0); Lymphocytes # 1.1 K/mm3 (0.7-4.5); Lymphocytes % 12.7 % (10-50); Mean Corpuscular HGB Conc 32.6 g/dL (31.8-35.4); Mean Corpuscular Volume 95.1 fl (80-94); Mean Platelet Volume 8.9 fl (7.4-10.4); Monocytes # 0.4 K/mm3 (0.1-1.0); Monocytes % 4.6 % (1.7-9.3); Neutrophils # 7.3 K/mm3 (1.8-7.8); Neutrophils % 82.5 % (37.0-80.0); Platelet Count 186 K/mm3 (142-424); Red Blood Count 4.75 M/mm3 (4.60-6.20); Red Cell Distribution Width 13.8 % (11.5-17.5); White Blood Count 8.9 K/mm3 (4.8-10.8)
[2020-09-30 07:45] LABS: Alanine Aminotransferase 31 U/L (12-78); Albumin Level 3.6 g/dl (3.5-5.0); Albumin/Globulin Ratio 1.1 (1.1-1.8); Alkaline Phosphatase 82 U/L (38-126); Anion Gap 15.1 mEq/L (5-15); Aspartate Amino Transferase 39 U/L (17-59); Bilirubin,Total 0.6 mg/dl (0.2-1.3); Blood Urea Nitrogen 39 mg/dl (9-20); Calcium 9.2 mg/dl (8.4-10.2); Carbon Dioxide 21 mmol/L (22.0-30.0); Chloride 109 mmol/L (98-107); Creatinine Clearance Estimated 73 mL/min (50-200); Estimated Glomerular Filt Rate 64 ml/min (>60); GFR (African American) 78 ML/MIN (>60); Globulin 3.4 g/dL (1.3-3.2); Glucose 179 mg/dl (74-100); Magnesium 1.7 mg/dl (1.6-2.3); Potassium 4.1 mmoL/L (3.5-5.1); Sodium 141 mmol/L (136-145)
--- NOTE | 2020-09-30 07:48 | HMH.DCSUM ---
General - General Admission date:: 09/28/20 Discharge date: 09/30/20 HPI HPI: Mr. Espinal is an 84-year-old male with history of arthritis, prostate cancer, hypertension, and diabetes on insulin daily who presented to the ER with worsening weakness and shortness of breath. He stated he has felt bad over the past 5 to 7 days. Said he had worsening weakness, malaise, shortness of breath that got worse over the past 2 to 3 days. Feeling rundown and having no energy. Denies chest pain, nausea, vomiting, diarrhea. Intermittent dry cough. No change in smell or taste. Was concerned because he had little energy to do anything and felt that he needed to be checked out to give him a boost. Upon arrival to the ER, concern for hypoxia and symptoms suggestive of COVID-19 infection. Initial labs showed he was positive for COVID-19. In the setting of hyperglycemia, abnormal kidney function, new oxygen requirement, patient was admitted for further management. On interview after arrival to the floor, he denies any known sick contacts. Adequate urine output. Denies any fevers but has had some cold chills. No focal neurologic deficits, blurry vision, slurred speech or other neurologic complaints. Patient was started on Covid protocol, supplemental oxygen, IV fluids. Hospital Course Hospital Course: Mr. Espinal was admitted for hypoxemic respiratory failure in the setting of new Covid 19 pneumonia diagnosis. Also noted to have NICOL on admission. Started on Covid protocol consisting of remdesivir, antibiotics (azithromycin and ceftriaxone), dexamethasone, and vitamin supplementation. Patient tolerated treatment well. Stable on 3 L nasal cannula oxygen during his admission. Patient ambulating independently, tolerating good p.o. intake, remained afebrile. Overall showing improvement meeting criteria for discharge home with continued oxygen need. Plan to complete antibiotics and vitamin supplementation in the home setting where he can continue to convalesce. We will plan for close follow-up later this week in our office for reexamination and assessment of improvement. Medically stable for discharge home. Denies chest pain, nausea, vomiting, diarrhea. Objective Vital signs: Temp Pulse Resp BP Pulse Ox 98.2 F 61 20 143/74 H 91 L 09/30/20 04:00 09/30/20 04:00 09/30/20 04:00 09/30/20 04:00 09/30/20 04:00 Narrative: - Constitutional NAD on 3 L nasal cannula, obese - *Routine HEENT Exam Head: Present: normocephalic Eye: Present: EOMI, PERRL ENT: Present: mucous membranes moist - *Routine Neck Exam Present: supple. Absent: lymphadenopathy - *Routine Respiratory Exam Present: intervally improved crackles (Bilateral bases posterior lung ansari), Good air movement bilaterally, no wheeze - *Routine Cardiovascular Exam Present: RRR - *Routine Abdominal Exam Present: soft, normoactive bowel sounds. Absent: tenderness - *Routine Extremities Exam Absent: cyanosis, clubbing, edema - *Routine Skin Exam Present: warm. Absent: rash - *Routine Neurological Exam Present: alert, oriented X3 Results Labs on day of discharge: Labs from last 24 hours 09/30/20 09/30/20 09/30/20 07:11 07:11 06:28 WBC 8.9 D RBC 4.75 Hgb 14.7 Hct 45.2 MCV 95.1 H MCH 31.0 MCHC 32.6 RDW 13.8 Plt Count 186 D MPV 8.9 Neut % (Auto) 82.5 H Lymph % (Auto) 12.7 [place] % (Auto) 4.6 Eos % (Auto) 0.0 L Baso % (Auto) 0.3 Neut # (Auto) 7.3 Lymph # (Auto) 1.1 [place] # (Auto) 0.4 Eos # (Auto) 0.0 Baso # (Auto) 0.0 Sodium 141 Potassium 4.1 Chloride 109 H Carbon Dioxide 21 L Anion Gap 15.1 H BUN 39 H Creatinine 1.10 Estimated Creat Clear 73 Estimated GFR 64 Est GFR ( Amer) 78 D Glucose 179 H POC Glucose 141 H Calcium 9.2 Magnesium 1.7 Total Bilirubin 0.6 AST 39 ALT 31 Alkaline Phosphatase 82 Total
[2020-09-30 08:00] VITALS: BP 143/73; BP 146/65; PULSE 81; PULSE 82; RESP 20; TEMP 36.5; TEMP 36.7; O2SAT 91; O2SAT 94
--- NOTE | 2020-09-30 11:51 | PC.NURSE ---
O2 SATURATION 88% ON ROOM AIR WENT BACK UP TO 92% ON 2 L NC.
[2020-09-30 11:52] VITALS: O2SAT 88
[2020-09-30 12:00] VITALS: BP 136/70; PULSE 77; RESP 18; TEMP 36.4; O2SAT 94
[2020-09-30 12:03] LABS: POC Glucose,Bedside 345 (70-110)
== END 2020-09-30 14:37 | disposition home or self-care (01) | DRG 177 ==
LOC: ER 12:44 → 2ND 16:38
PROVIDERS: Internal Medicine Adolescent Medicine; Admitting Provider Internal Medicine Adolescent Medicine; Emergency Provider Emergency Medicine; PCP Nurse Practitioner Family; Visit Provider Internal Medicine Adolescent Medicine
DX: U07.1 COVID-19 (principal); J12.82 Pneumonia due to coronavirus disease 2019; J96.01 Acute respiratory failure with hypoxia; N17.9 Acute kidney failure, unspecified; E11.9 Type 2 diabetes mellitus without complications; E03.9 Hypothyroidism, unspecified; I11.0 Hypertensive heart disease with heart failure; Z88.8 Allergy status to other drugs, medicaments and biological substances; Z79.4 Long term (current) use of insulin; Z79.82 Long term (current) use of aspirin; Z79.899 Other long term (current) drug therapy
CPT/HCPCS: 36415; 71045; 80053; 82803; 82962; 83605; 83735; 84484; 85025; 85378; 87040; 87205; 87581; 87633; 87798; 93005; 94761; 96365; 96367; 99284; J0456; U0003